=== PATIENT | female | born 2000 | race Caucasian/White ===

== ENCOUNTER 2020-10-02 10:11 | Emergency (ER) | payer OTHER ==
[~2020-10-02] VITALS: Ht 162.6 cm; Wt 68.2 kg
[2020-10-02] MEDS ORDERED: IBUPROFEN 800 MG TABLET PO ONE (11:30)
[2020-10-02 12:11] VITALS: BP 112/61
== END 2020-10-02 12:18 | disposition home or self-care (01) ==
LOC: EMS 10:17
DX: L25.9 Unspecified contact dermatitis, unspecified cause (principal)